=== PATIENT | male | born 1970 | race African-American/Black ===

== ENCOUNTER 2020-01-10 22:21 | Emergency (ER) | payer OTHER, SELFPAY ==
[2020-01-10 22:27] VITALS: BP 137/92; PULSE 99; RESP 16; TEMP 37.2; O2SAT 97
--- NOTE | 2020-01-10 22:33 | ED.WOUNDLAC ---
HPI - Wound/Laceration General Chief Complaint: Wound/Laceration Stated Complaint: L 2nd finger lac Time Seen by Provider: 01/10/20 22:23 Source: patient Mode of arrival: ambulatory Limitations: no limitations History of Present Illness HPI narrative: This patient is 49 yo male right hand dominant who presents for evaluation of left index finger laceration . Patient states just prior to arrival he accidently cut his finger with kitchen knife and he was unable to stop the bleeding. Patient states he takes aspirin daily but denies anticoagulation. HE denies any pain , weakness or numbness or tingling. Onset (ago): minute(s) (30 minutes) Location: other (left index finger) Related Data Allergies Allergy/AdvReac Type Severity Reaction Status Date / Time No Known Allergies Allergy Unverified 01/10/20 22:29 Review of Systems Review of Systems: All systems reviewed & are unremarkable except as noted in HPI and below Neurologic: Denies numbness PMFSH Past Medical History Medical History (Updated 01/11/20 @ 00:00 by Background Daemon) Diabetes mellitus Exam Const: General: alert Orientation/consciousness: patient oriented x3 Eyes: EOM: EOMs intact bilaterally Resp: Effort & Inspection: normal respiratory effort Neuro: General: patient oriented x3 and moves all extremities Extrem: Other: left finger with superficial flap laceration to distal finger on radial side of index finger, oozing blood, FROM of finger Course Reevaluation(s) Reevaluation #1: PAtient's finger has stopped bleeding. I have applied dermabond Date: 01/10/20 Time: 23:14 Vital Signs Vital signs: Vital Signs Temperature 98.9 F 01/10/20 22:27 Pulse Rate 99 01/10/20 22:27 Respiratory Rate 16 01/10/20 22:27 Blood Pressure 137/92 H 01/10/20 22:27 Pulse Oximetry 97 01/10/20 22:27 Temperature 98.9 F 01/10/20 22:27 Pulse Rate 77 01/10/20 23:55 Respiratory Rate 14 01/10/20 23:55 Blood Pressure 131/92 H 01/10/20 23:55 Pulse Oximetry 95 01/10/20 23:55 Procedures Laceration Laceration 1: Date: 01/10/20 Time: 23:16 Site: hand (index finger) Side (If applicable): left Size (cm): 1 Description: flap Depth: simple, single layer Local Anesthetic: none ====== Skin Level ====== Skin layer closed with: dermabond ====== Subcutaneous Layer ====== ====== Muscle Layer ====== ====== Tendon Layer ====== Discharge Plan Discharge Clinical Impression: Laceration of index finger of left hand without complication Patient Disposition: Home, Self-Care Condition: Stable Instructions: Laceration (ED), Skin Adhesive Care (ED) Additional Instructions: Today you were seen for laceration to your finger. Keep your wound clean dry. The adhesive should fall off on it own. Do not apply antibiotics ointment. watch for signs of infection. Follow-up/Referrals: PHYSICIAN NOT ON STAFF,NONSTAFF [Primary Care Provider] - Discharge Date/Time: 01/10/20 23:57
[2020-01-10] MEDS: TETANUS,DIPHTHERIA,AC PERTUSSIS ADULT 0.5 ML (ADACEL) IM (23:24)
[2020-01-10 23:55] VITALS: BP 131/92; PULSE 77; RESP 14; O2SAT 95
== END 2020-01-10 23:57 | disposition home or self-care (01) ==
PROVIDERS: Emergency Provider General Practice
DX: S61.211A Laceration without foreign body of left index finger without damage to nail, initial encounter (principal); E11.9 Type 2 diabetes mellitus without complications; Z23 Encounter for immunization; Z79.82 Long term (current) use of aspirin; W26.0XXA Contact with knife, initial encounter
CPT/HCPCS: 12001; 90471; 90715; 99282